=== PATIENT | male | born 1955 | race Caucasian/White ===

== ENCOUNTER 2023-09-10 06:24 | Day surgery (SDC) | payer OTHER ==
[2023-09-06 10:52] VITALS: BMI 24.8
[2023-09-10] MEDS ORDERED: CEFAZOLIN 2 GM in DEXTROSE 5%-WATER - 50 ML IVPB ONE (06:30)
[2023-09-10] MEDS ORDERED: MIDAZOLAM HCL 2 MG/2 ML SINGLE DOSE VIAL ONE ×3 (07:16→08:53)
[2023-09-10] MEDS ORDERED: DEXAMETHASONE SOD PHOSPHATE/PF 10 MG/ML SDV ONE (07:24)
[2023-09-10] MEDS ORDERED: BUPIVACAINE HCL/PF 0.5% (5 MG/ML) 30 ML VIAL IJ ONE (07:24)
[2023-09-10] MEDS ORDERED: THROMBIN (BOVINE) 5,000 UNIT VIAL TP ONE (07:38)
[2023-09-10] MEDS ORDERED: VANCOMYCIN 1,000 MG VIAL (RESTRICTED TO ID ONLY) ONE ×2 (07:38→08:02)
[2023-09-10] MEDS ORDERED: TRANEXAMIC ACID 1000 MG/10 ML VIAL IVPUSH ONE (08:00)
[2023-09-10] MEDS ORDERED: DEXAMETHASONE SOD PHOSPHATE 4 MG/1 ML VIAL ONE (08:02)
[2023-09-10] MEDS ORDERED: ONDANSETRON 4 MG/2 ML VIAL ONE (08:02)
[2023-09-10] MEDS ORDERED: ceFAZolin SODIUM 1 GM VIAL ONE (08:02)
[2023-09-10] MEDS ORDERED: PROPOFOL 20 ML ONE ×2 (08:09→08:52)
[2023-09-10] MEDS ORDERED: TRANEXAMIC ACID 1000 MG/10 ML VIAL ONE (08:52)
[2023-09-10] MEDS ORDERED: VERAPAMIL HCL 5 MG/2 ML VIAL IVPUSH ONE (08:52)
[2023-09-10] MEDS ORDERED: BUPIVICAINE 0.25%/MORPH PF/KETOROLAC - 51ML DISP.SYRINGE IA ONE (08:59)
[2023-09-10] MEDS ORDERED: MAGNESIUM HYDROX 2400MG/30ML ORAL SUSPENSION 30 ML CUP PO PRN (10:11)
[2023-09-10] MEDS ORDERED: MAG HYDROX/AL HYDROX/SIMETH 30 ML UNIT-DOSE CUP PO PRN (10:11)
[2023-09-10] MEDS ORDERED: LACTATED RINGERS SOLUTION 1,000 ML IV SCH ×2 (10:15→10:30)
[2023-09-10] MEDS ORDERED: ONDANSETRON 4 MG/2 ML VIAL IVPUSH PRN ×2 (10:16→16:18)
[2023-09-10] MEDS ORDERED: oxyCODONE HCL 5 MG TABLET PO PRN (10:16)
[2023-09-10] MEDS ORDERED: ACETAMINOPHEN INJECTION 100 ML IVPB ONE ×2 (10:41→23:43)
[2023-09-10] MEDS: ACETAMINOPHEN 1000 MG/100 ML BAG IVPB ONE ×2 (10:54→16:45)
[2023-09-10 14:31] LABS: HIV INTERPRETATION NEGATIVE (NEGATIVE)
[2023-09-10] MEDS: oxyCODONE HCL 5 MG TABLET PO PRN ×2 (16:44→21:12)
[2023-09-10] MEDS: CEFAZOLIN SODIUM 2 GM in DEXTROSE 5%-WATER 100 ML IVPB SCH ×2 (16:45→23:45)
[2023-09-10] MEDS: ACETAMINOPHEN 1000 MG/100 ML BAG IVPB SCH ×2 (17:28→23:45)
[2023-09-10] MEDS: ASPIRIN COATED 81 MG TABLET.EC PO SCH (21:11)
[2023-09-10] MEDS: GABAPENTIN 300 MG CAPSULE PO SCH (21:11)
[2023-09-10] MEDS: oxyCODONE HCL 10 MG SUSTAINED ACTING TABLET PO SCH (21:11)
[2023-09-10] MEDS: ASCORBIC ACID 500 MG TABLET (FP) PO SCH (21:12)
[2023-09-10] MEDS: SENNOSIDES/DOCUSATE COMBO (SENNA PLUS) TABLET (UD) PO SCH (21:12)
[2023-09-11 00:08] VITALS: RESP 18
[2023-09-11] MEDS: ACETAMINOPHEN 1000 MG/100 ML BAG IVPB SCH (06:49)
[2023-09-11 09:35] LABS: HEMATOCRIT 33.5 % (35.4-49); HEMOGLOBIN 10.8 G/dL (11.7-16.9); MCH 28.2 pg (25.7-33.7); MCHC 32.4 g/dl (32.0-35.9); MEAN PLT VOLUME 7.5 fl (7.5-11.1); RBC 3.85 10^6/uL (4.00-5.60); RDW 16.5 % (11.9-15.9); WHITE BLOOD COUNT 14.2 10^3/uL (4.0-10.8)
[2023-09-11] MEDS: ASPIRIN COATED 81 MG TABLET.EC PO SCH (09:37)
[2023-09-11] MEDS: SENNOSIDES/DOCUSATE COMBO (SENNA PLUS) TABLET (UD) PO SCH (09:37)
[2023-09-11] MEDS: GABAPENTIN 300 MG CAPSULE PO SCH (09:38)
[2023-09-11] MEDS: ASCORBIC ACID 500 MG TABLET (FP) PO SCH (09:38)
[2023-09-11] MEDS: oxyCODONE HCL 10 MG SUSTAINED ACTING TABLET PO SCH (09:39)
[2023-09-11] MEDS ORDERED: CELECOXIB 200 MG CAPSULE PO SCH (10:00)
[2023-09-11] MEDS ORDERED: PATIENT'S OWN MEDICATION (NON-FORMULARY) (Multivitamin [One-Daily Multi-Vitamin] 1 EACH Ta PO SCH (10:00)
[2023-09-11] MEDS ORDERED: VALSARTAN 160 MG TABLET PO SCH (10:00)
[2023-09-11] MEDS ORDERED: PANTOPRAZOLE 40 MG TABLET PO SCH (10:00)
[2023-09-11] MEDS ORDERED: MULTIVITAMINS (DAILY MVI) TABLET (FP) PO SCH (10:00)
[2023-09-11 10:14] LABS: CALCIUM 8.6 mg/dl (8.5-10.1); CREATININE 1.2 mg/dl (0.6-1.3)
[2023-09-11 12:52] VITALS: BP 121/68; PULSE 66; TEMP 97.6
[2023-09-11] MEDS ORDERED: ATORVASTATIN CA 40 MG TABLET (FP) PO SCH (22:00)
== END 2023-09-11 12:59 | disposition home or self-care (01) ==
LOC: FASUSAT 06:24 → FM/S 12:22 → FASUSAT 09-11 12:59
PROC: 8E0Y0CZ Robotic Assisted Procedure of Lower Extremity, Open Approach (ICD-10-PCS; 2023-09-10)
PROC: 0SRB0JA Replacement of Left Hip Joint with Synthetic Substitute, Uncemented, Open Approach (ICD-10-PCS; principal; 2023-09-10 08:23)
DX: M16.12 Unilateral primary osteoarthritis, left hip (principal)
CPT/HCPCS: 20985; 27130; C1776; S2900; 36415; 73502-TC-LT-FY; 80048; 84460; 85027; 86803; 86850; 86900; 86901; 87340; 87389; 88305-TC; 88311-TC; 94760; 97010-GP; 97116-GP; 97161-GP; C1713